=== PATIENT | female | born 1955 | race Caucasian/White ===

== ENCOUNTER 2021-01-30 13:29 | Emergency (ER) | payer MEDICARE, OTHER ==
[2021-01-30] MEDS ORDERED: IPRATROPIUM/ALBUTEROL 3 ML NEB INH STA (14:09)
--- NOTE | 2021-01-30 14:11 | ED Physician Documentation ---
History of Present Illness - Stated complaint Stated Complaint: SOA - Chief complaint Chief Complaint: Resp - History obtained from History obtained from: Patient - History of Present Illness Timing: How many weeks ago (1) Pain level max: 0 Pain level now: 0 - Additonal information Additional information: 65-year-old female presents to the emergency department stating that she has had 1 week of ongoing difficulty breathing. Has a history of COPD. Recently moved here from [place]. Uses home O2 at night. She states she has not been using this the past few nights. Uses her albuterol inhaler twice a day. Currently not on any steroids. No fevers. No chills. Has a dry nonproductive cough. Has had her Covid vaccinations. No chest pain. No leg swelling. Review of Systems Ten Systems: 10 systems reviewed and negative Constitutional: denies: Fever, Chills Throat: denies: Sore throat Cardiac: denies: Palpitations GI: denies: Abdominal Pain, Vomiting, Diarrhea Skin: denies: Rash Musculoskeletal: denies: Neck pain, Back pain Neurologic: denies: Headache PD PAST MEDICAL HISTORY - Past Medical History Cardiovascular: None Respiratory: COPD Endocrine/Autoimmune: Type 2 diabetes GI: None DOCTOR OF CHIROPRACTIC: None : Kidney stones HEENT: Chronic sinusitis Psych: Depression Musculoskeletal: Osteoarthritis Derm: None - Past Surgical History Past Surgical History: Yes General: Cholecystectomy, Appendectomy Ortho: Knee replacement, Carpal Tunnel surgery - Present Medications Home Medications: Ambulatory Orders Medication Instructions Recorded Confirmed DULoxetine [Cymbalta] 90 mg PO DAILY 07/02/13 01/30/21 Losartan [Cozaar] 25 mg PO DAILY 07/02/13 01/30/21 Albuterol Sulf [Ventolin Hfa 0 puffs INH PRN PRN 01/30/21 01/30/21 Inhaler] Benzonatate [Tessalon] 100 mg PO TID PRN 01/30/21 01/30/21 Bupropion HCl [Wellbutrin Xl] 300 mg PO DAILY 01/30/21 01/30/21 Dapagliflozin Propanediol [Farxiga] 10 mg PO DAILY 01/30/21 01/30/21 HYDROmorphone [Dilaudid] 2 mg PO Q6H PRN 01/30/21 01/30/21 Metformin HCl [Glucophage] 1,000 mg PO BID 01/30/21 01/30/21 Pregabalin [Lyrica] 2 cap PO DAILY PM 01/30/21 01/30/21 Pregabalin [Lyrica] 3 cap PO DAILY 01/30/21 01/30/21 Propranolol HCl 40 mg PO BID 01/30/21 01/30/21 Simvastatin [Zocor] 10 mg PO DAILY PM 01/30/21 01/30/21 predniSONE [Deltasone] 10 mg PO [id number] #42 tab 01/30/21 - Allergies Allergies/Adverse Reactions: Allergies Allergy/AdvReac Type Severity Reaction Status Date / Time acetaminophen [From Vicodin] Allergy Rash Verified 07/02/13 09:19 codeine Allergy Rash Verified 01/30/21 13:43 hydrocodone bitartrate * Allergy Rash Verified 01/30/21 13:43 [From Vicodin] morphine Allergy heavy Verified 01/30/21 13:43 sedation oxycodone HCl * Allergy Headache Verified 01/30/21 13:43 [From Percocet] - Social History Does the pt smoke?: No Smoking Status: Never smoker Does the pt drink ETOH?: No Does the pt have substance abuse?: No - Immunizations Immunizations are current?: Yes - POLST Patient has POLST: No PD ED PE NORMAL - Vitals Vital signs reviewed: Yes - General General: Alert and oriented X 3, No acute distress - HEENT HEENT: Moist mucous membranes - Neck Neck: Supple, no meningeal sign - Cardiac Cardiac: RRR - Respiratory Respiratory: No respiratory distress, Other (wheezing bilaterally.) - Abdomen Abdomen: Normal bowel sounds, Soft, Non tender - Derm Derm: Warm and dry - Extremities Extremities: No edema - Neuro Neuro: Alert and oriented X 3 Results - Vitals Vitals: Vital Signs - 24 hr 01/30/21 01/30/21 01/30/21 13:39 13:42 14:14 Temperature 36.6 C Heart Rate 110 H 100 Respiratory 24 19 Rate Blood Pressure 142/82 H O2 Saturation 93 88 L 01/30/21 01/30/21 01/30/21 14:16 15:00 15:38 Temperature 36.2 C L Heart Rate 94 96 Respiratory 13 18 Rate Blood Pressure 149/115 H O2 Saturation 93 94 Oxygen O2 Source Nasal cannula Oxygen Flow Rate 2 - EKG (time done) 1350 Rate: Rate (enter#) (101) Rhythm: Sinus tachycardia Gully: Normal Intervals: Normal UT QRS: Normal Ischemia: Normal ST segments - Labs Labs: Laboratory Tests 01/30/21 01/30/21 01/30/21 14:01 14:01 14:01 WBC 9.9 RBC 5.41 H Hgb 15.8 Hct 48.7 H MCV 90.0 MCH 29.2 MCHC 32.4 RDW 14.3 Plt Count 253 MPV 11.2 H Neut # (Auto) 4.8 Lymph # (Auto) 1.9 [place] # (Auto) 1.3 H Eos # (Auto) 1.9 H Baso # (Auto) 0.1 Absolute Nucleated RBC 0.00 Nucleated RBC % 0.0 Manual Slide Review Indicated RBC Morph Micro Appear 1+ ANISOCYTOSIS VBG pH VBG pCO2 VBG pO2 VBG HCO3 VBG Total CO2 VBG O2 Saturation VBG Base Excess Sodium 136 Potassium 4.0 Chloride 99 L Carbon Dioxide 25 Anion Gap 12.0 BUN 18 Creatinine 0.8 Estimated GFR (MDRD) 72 L Glucose 170 H Calcium 9.1 Total Bilirubin 0.4 AST 32 ALT 32 Alkaline Phosphatase 82 Troponin I High Sens < 2.3 L B-Natriuretic Peptide Total Protein 7.7 Albumin 4.0 Globulin 3.7 Albumin/Globulin Ratio 1.1 Lipase 35 01/30/21 01/30/21 14:01 14:01 WBC RBC Hgb Hct MCV MCH MCHC RDW Plt Count MPV Neut # (Auto) Lymph # (Auto) [place] # (Auto) Eos # (Auto) Baso # (Auto) Absolute Nucleated RBC Nucleated RBC % Manual Slide Review RBC Morph Micro Appear VBG pH 7.353 VBG pCO2 44.6 VBG pO2 54.4 H VBG HCO3 24.2 VBG Total CO2 25.6 VBG O2 Saturation 88.7 H VBG Base Excess -1.6 Sodium Potassium Chloride Carbon Dioxide Anion Gap BUN Creatinine Estimated GFR (MDRD) Glucose Calcium Total Bilirubin AST ALT Alkaline Phosphatase Troponin I High Sens B-Natriuretic Peptide 26 Total Protein Albumin Globulin Albumin/Globulin Ratio Lipase - Rads (name of study) cxr Radiology: Prelim report reviewed, EMP read contemporaneously, See rad report (No acute cardiopulmonary pathology.) PD MEDICAL DECISION MAKING - ED course Complexity details: reviewed results, re-evaluated patient, considered differential, d/w patient ED course: Patient is a 65-year-old female with what appears to be a COPD flare. She is well-appearing, nontoxic. Afebrile. Her O2 sat on room air is approximately 90%. This is baseline for her. Respiratory therapy did discuss with Elvis to set up her home O2 for nighttime. We will place her on a steroid taper for home and have her increase her albuterol from 2 times a day to 4 times a day. Recommend that she follow-up with the PCP for further care of her COPD. Patient counseled regarding signs and symptoms for which I believe and urgent re- evaluation would be necessary. Patient with good understanding of and agreement to plan and is comfortable going home at this time This document was made in part using voice recognition software. While efforts are made to proofread this document, sound alike and grammatical errors may occur. Departure - Departure Disposition: 01 Home, Self Care Clinical Impression: COPD exacerbation Condition: Good Instructions: ED COPD Flare Follow-Up: your,doctor in 1 week [Other] Prescriptions: predniSONE [Deltasone] 10 mg PO [id number] #42 tab Comments: You can use the albuterol up to 4 times per day. Follow-up with your doctor for further care. Return if you worsen.
--- NOTE | 2021-01-30 14:12 | XRAY Report ---
PROCEDURE: Chest 1 View X-Ray INDICATIONS: Chest Pain TECHNIQUE: One view of the chest was acquired. COMPARISON: None. FINDINGS: Surgical changes and devices: None. Lungs and pleura: No pleural effusions or pneumothorax. Lungs are clear. Mediastinum: Mediastinal contours appear normal. Heart size is normal. Bones and chest wall: No suspicious bony lesions. Overlying soft tissues appear unremarkable. IMPRESSION: No acute cardiopulmonary pathology. Reviewed by: Jac Lemus MD on 01/30/2021 2:10 PM PDT Approved by: Jac Lemus MD on 01/30/2021 2:10 PM PDT Station ID: [id number]
[2021-01-30 14:13] LABS: BASOPHILS # (AUTO) 0.1 10^3/uL (0.0-0.1); EOSINOPHILS # (AUTO) 1.9 10^3/uL (0.0-0.7); EOSINOPHILS % (AUTO) 18.7 %; HCT - HEMATOCRIT 48.7 % (37.0-47.0); HGB - HEMOGLOBIN 15.8 g/dL (12.0-16.0); LYMPHOCYTES # (AUTO) 1.9 10^3/uL (1.5-3.5); LYMPHOCYTES % (AUTO) 18.8 %; MEAN CORPUSCULAR HEMOGLOBIN 29.2 pg (27.0-31.0); MEAN CORPUSCULAR HGB CONC 32.4 g/dL (32.0-36.0); MEAN PLATELET VOLUME 11.2 fL (7.9-10.8); MONOCYTES # (AUTO) 1.3 10^3/uL (0.0-1.0); MONOCYTES % (AUTO) 12.7 %; NEUTROPHILS # (AUTO) 4.8 10^3/uL (1.5-6.6); NEUTROPHILS % (AUTO) 48.6 %; PLT - PLATELET COUNT 253 10^3/uL (130-450); RED BLOOD COUNT 5.41 10^6/uL (4.20-5.40); RED CELL DISTRIBUTION WIDTH 14.3 % (12.0-15.0); WHITE BLOOD COUNT 9.9 x10^3/uL (4.8-10.8)
[2021-01-30 14:15] LABS: RBC MORPHOLOGY (MULTIPLE) 1+ ANISOCYTOSIS (NORMAL); SLIDE REVIEW? Indicated
[2021-01-30 14:21] LABS: VBG BASE EXCESS -1.6 mmol/L (-2 - +2); VBG HCO3 24.2 mmol/L (23-28); VBG PCO2 44.6 mmHg (41-51); VBG PH 7.353 (7.31-7.41); VBG PO2 54.4 mmHg (25-47); VBG TOTAL CO2 25.6 mmol/L (24-29)
[2021-01-30 14:22] LABS: VBG OXYGEN SATURATION 88.7 % (60-80)
[2021-01-30 14:34] LABS: ALBUMIN/GLOBULIN RATIO 1.1 (1.0-2.2); BILIRUBIN,TOTAL 0.4 mg/dL (0.2-1.0); CALCIUM 9.1 mg/dL (8.5-10.3); CREATININE 0.8 mg/dL (0.4-1.0); TOTAL PROTEIN 7.7 g/dL (6.7-8.2)
[2021-01-30] MEDS ORDERED: predniSONE 20 MG TABLET PO STA (14:52)
[2021-01-30] MEDS ORDERED: ALBUTEROL NEB 2.5 MG/3 ML INH STA (15:12)
[2021-01-30 16:23] VITALS: BP 141/102
== END 2021-01-30 16:15 | disposition home or self-care (01) ==
LOC: ED 13:29
DX: J44.1 Chronic obstructive pulmonary disease with (acute) exacerbation (principal); Z99.81 Dependence on supplemental oxygen; E11.9 Type 2 diabetes mellitus without complications; Z79.84 Long term (current) use of oral hypoglycemic drugs
CPT/HCPCS: 36415; 71045; 80053; 82803; 83690; 83880; 84484; 85025; 93005; 94640; 94664; 99284; J7512

== ENCOUNTER 2021-02-13 10:35 | Outpatient (CLI) | payer MEDICARE, OTHER ==
--- NOTE | 2021-02-13 15:17 | XRAY Report ---
PROCEDURE: Knee 3 View RT INDICATIONS: RIGHT KNEE PAIN TECHNIQUE: 4 views of the right knee(s) were acquired. COMPARISON: None. FINDINGS: Bones: No fractures or dislocations, but there is evidence of prior ACL reconstruction, and also pos ttraumatic degenerative knee joint osteoarthritis.. No suspicious bony lesions. There is moderate me dial and lateral compartment joint space narrowing on the frontal projection, and at the patellofemor al joint there is also mild to moderate degenerative osteoarthritis involving each facet. Soft tissues: No joint effusion. No suspicious soft tissue calcifications. At the medial border of the knee joint anteriorly there are 2 adjacent small calcific radiodensities that are rounded, and c ould represent posttraumatic intra-articular osteochondral loose bodies. IMPRESSION: Prior ACL reconstruction, no joint effusion found. 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 Anterior medial 2 small rounded 3 x 4 mm possible intra-articul ar loose bodies. Reviewed by: Elder Geronimo MD on 02/13/2021 3:16 PM PDT Approved by: Elder Geronimo MD on 02/13/2021 3:16 PM PDT Station ID: [id number]
== END 2021-02-13 10:36 | disposition home or self-care (01) ==
LOC: DI.N 10:35
PROVIDERS: ATTEND Physician Assistant
DX: M17.31 Unilateral post-traumatic osteoarthritis, right knee (principal); R93.6 Abnormal findings on diagnostic imaging of limbs

== ENCOUNTER 2021-02-15 09:30 | Emergency (ER) | payer MEDICARE, OTHER ==
[2021-02-15] MEDS ORDERED: MECLIZINE 12.5 MG TABLET PO STA (10:39)
[2021-02-15] MEDS ORDERED: ACETAMINOPHEN 500 MG TABLET PO STA (10:39)
[2021-02-15] MEDS ORDERED: ALBUTEROL NEB 2.5 MG/3 ML INH STA (10:41)
--- NOTE | 2021-02-15 10:41 | ED Physician Documentation ---
PD HPI HEADACHE - Stated complaint Stated Complaint: GLF/HEAD PX - Chief complaint Chief Complaint: Trauma Hd/Nk - History obtained from History obtained from: Patient - Additional information Additional information: 3 days ago fell tripped up on the stairs hit her back of her head on the linoleum. Also hurt her left shoulder and hip. There was no loss of consciousness but then since then she has had intermittent nausea and 1 and waning headaches at times severe. She has also had vertigo. Of note she has a history of COPD and is noted to be hypoxic but is not much more short of breath than usual. Review of Systems Ten Systems: 10 systems reviewed and negative Constitutional: reports: Fatigue. denies: Fever, Chills GI: reports: Nausea, Vomiting PD PAST MEDICAL HISTORY - Past Medical History Past Medical History: Yes Cardiovascular: None Respiratory: COPD Endocrine/Autoimmune: Type 2 diabetes GI: None MANAGER SPORTS: None : Kidney stones HEENT: Chronic sinusitis Psych: Depression Musculoskeletal: Osteoarthritis Derm: None - Past Surgical History Past Surgical History: Yes General: Cholecystectomy, Appendectomy Ortho: Knee replacement, Carpal Tunnel surgery - Present Medications Home Medications: Ambulatory Orders Medication Instructions Recorded Confirmed DULoxetine [Cymbalta] 90 mg PO DAILY 07/02/13 02/15/21 Losartan [Cozaar] 25 mg PO DAILY 07/02/13 02/15/21 Albuterol Sulf [Ventolin Hfa 0 puffs INH PRN PRN 01/30/21 02/15/21 Inhaler] Bupropion HCl [Wellbutrin Xl] 300 mg PO DAILY 01/30/21 02/15/21 Dapagliflozin Propanediol [Farxiga] 10 mg PO DAILY 01/30/21 02/15/21 Metformin HCl [Glucophage] 1,000 mg PO BID 01/30/21 02/15/21 Pregabalin [Lyrica] 3 cap PO DAILY 01/30/21 02/15/21 Propranolol HCl 40 mg PO BID 01/30/21 02/15/21 Simvastatin [Zocor] 10 mg PO DAILY PM 01/30/21 02/15/21 Dulaglutide [Trulicity] 1 applic SQ OAW 02/15/21 02/15/21 Fluticasone/Vilanterol [Breo 1 inh INH DAILY 02/15/21 02/15/21 Ellipta 100-25 Mcg INH] Meclizine HCl [Motion Sickness] 25 mg PO Q6H PRN #20 tablet 02/15/21 - Allergies Allergies/Adverse Reactions: Allergies Allergy/AdvReac Type Severity Reaction Status Date / Time acetaminophen [From Vicodin] Allergy Rash Verified 02/15/21 09:47 codeine Allergy Rash Verified 02/15/21 09:47 hydrocodone bitartrate * Allergy Rash Verified 02/15/21 09:47 [From Vicodin] morphine Allergy heavy Verified 02/15/21 09:47 sedation oxycodone HCl * Allergy Headache Verified 02/15/21 09:47 [From Percocet] - Social History Does the pt smoke?: No Smoking Status: Never smoker Does the pt drink ETOH?: No Does the pt have substance abuse?: No - Immunizations Immunizations are current?: Yes - POLST Patient has POLST: No PD ED PE NORMAL - Vitals Vital signs reviewed: Yes - General General: Alert and oriented X 3, No acute distress - HEENT HEENT: PERRL, EOMI - Neck Neck: Supple, no meningeal sign, No bony TTP - Cardiac Cardiac: RRR, No murmur - Respiratory Respiratory: No respiratory distress, Other (Wheezy throughout but nonlabored) - Abdomen Abdomen: Soft, Non tender - Back Back: No CVA TTP, No spinal TTP - Derm Derm: Normal color, Warm and dry - Extremities Extremities: Other (Examination of the left shoulder and left hip demonstrates full range of motion and nontender.) - Neuro Neuro: Alert and oriented X 3, No motor deficit, No sensory deficit, Normal speech Eye Opening: Spontaneous Motor: Obeys Commands Verbal: Oriented GCS Score: 15 Results - Vitals Vitals: Vital Signs - 24 hr 02/15/21 02/15/21 02/15/21 09:39 10:26 11:14 Temperature 36.8 C Heart Rate 80 75 72 Respiratory 20 16 20 Rate Blood Pressure 118/87 H 121/73 O2 Saturation 88 L 94 Oxygen O2 Source Nasal cannula PD MEDICAL DECISION MAKING - ED course ED course: 65-year-old woman presents with postconcussion headaches and vertigo after head injury. CT scanning of the head and cervical spine interpreted contemporaneously by me showed no acute issue. She does have some sinus disease but is asymptomatic from that perspective. She was noted to be hypoxic here, but after an albuterol nebulizer was in the mid to high 90s on room air. She has inhalers at home. She did get relief with symptomatic medications here including acetaminophen and meclizine albeit incompletely relief. Departure - Departure Disposition: 01 Home, Self Care Clinical Impression: Vertigo Concussion Qualifiers: Encounter type: initial encounter Loss of consciousness presence/duration: without LOC Qualified Code(s): S06.0X0A - Concussion without loss of consciousness, initial encounter Injury of head and neck Qualifiers: Encounter type: initial encounter Qualified Code(s): S09.90XA - Unspecified injury of head, initial encounter; S19.9XXA - Unspecified injury of neck, initial encounter Condition: Good Record reviewed to determine appropriate education?: Yes Instructions: ED Concussion Prescriptions: Meclizine HCl [Motion Sickness] 25 mg PO Q6H PRN #20 tablet PRN Reason: Dizziness Comments: The vertigo and headaches should go away with time. No specific intervention is needed. There is no blood in your brain. I am prescribing some medications to help with the vertigo and you can also take Tylenol as needed for the headaches. Recommend not drinking or driving with the vertigo medication. Follow-up with your doctor this week for reevaluation. Return for new or worsening symptoms.
--- NOTE | 2021-02-15 11:16 | CT Report ---
PROCEDURE: HEAD WO INDICATIONS: head injury TECHNIQUE: Noncontrast 4.5 mm thick angled axial sections acquired from the foramen magnum to the vertex. For r adiation dose reduction, the following was used: automated exposure control, adjustment of mA and/or kV according to patient size. COMPARISON: None. FINDINGS: Image quality: Excellent. CSF spaces: Basal cisterns are patent. No extra-axial fluid collections. Ventricles are normal in size and shape. Brain: No midline shift. No intracranial masses or hemorrhage. Falk-white matter interface is norm al. Skull and face: Calvarium and visualized facial bones are intact, without suspicious lesions. Sinuses: Mild mucosal thickening within the bilateral frontal, ethmoid, and maxillary sinuses. Modera te left sphenoid sinus mucosal thickening. Mild right sphenoid sinus mucosal thickening. Mastoids are clear. IMPRESSION: 1. No acute intracranial abnormality. 2. Sinus disease. Reviewed by: Ani Carlson MD on 02/15/2021 10:15 AM AMAYA Approved by: Ani Carlson MD on 02/15/2021 10:15 AM AMAYA Station ID: [id number]
--- NOTE | 2021-02-15 11:17 | CT Report ---
PROCEDURE: CERVICAL SPINE WO INDICATIONS: head injury TECHNIQUE: Noncontrast 3 mm thick sections acquired from the skull base to the T4 level. Sagittal and coronal r eformats were then constructed. For radiation dose reduction, the following was used: automated exp osure control, adjustment of mA and/or kV according to patient size. COMPARISON: None. FINDINGS: Image quality: Excellent. Bones: No fractures or dislocations. Visualized superior ribs are intact. Soft tissues: Prevertebral soft tissues are normal in thickness. No paravertebral hematomas. No ap ical pneumothoraces. Mucosal thickening within the bilateral maxillary sinuses. Mastoids are clear. IMPRESSION: No fracture. Reviewed by: Ani Carlson MD on 02/15/2021 10:16 AM AMAYA Approved by: Ani Carlson MD on 02/15/2021 10:16 AM AMAYA Station ID: [id number]
[2021-02-15 11:40] VITALS: BP 106/65
== END 2021-02-15 11:54 | disposition home or self-care (01) ==
LOC: ED 09:30
DX: S06.0X0A Concussion without loss of consciousness, initial encounter (principal); W10.9XXA Fall (on) (from) unspecified stairs and steps, initial encounter; E11.9 Type 2 diabetes mellitus without complications; Z79.84 Long term (current) use of oral hypoglycemic drugs; J44.9 Chronic obstructive pulmonary disease, unspecified; R09.02 Hypoxemia
CPT/HCPCS: 70450; 72125; 94640; 99284; A9270

== ENCOUNTER 2021-09-29 08:00 | Outpatient (CLI) | payer MEDICARE, OTHER | END 2021-09-29 23:59 | disposition home or self-care (01) | LOC: LAB.S 08:00 | PROVIDERS: ATTEND Physician Assistant | DX: R05.1 Acute cough (principal); R30.0 Dysuria; Z20.822 Contact with and (suspected) exposure to COVID-19 | CPT/HCPCS: 87086; U0004 ==

== ENCOUNTER 2021-09-29 11:36 | Emergency (ER) | payer MEDICARE, OTHER ==
[2021-09-29 12:42] LABS: EOSINOPHILS % (AUTO) 11.7 %; HGB - HEMOGLOBIN 14.7 g/dL (12.0-16.0); MEAN CORPUSCULAR VOLUME 90.7 fL (81.0-99.0); MEAN PLATELET VOLUME 10.7 fL (7.9-10.8); MONOCYTES % (AUTO) 8.6 %; NEUTROPHILS % (AUTO) 58.5 %; PLT - PLATELET COUNT 264 10^3/uL (130-450); RED BLOOD COUNT 5.07 10^6/uL (4.20-5.40); WHITE BLOOD COUNT 10.2 x10^3/uL (4.8-10.8)
[2021-09-29 12:52] LABS: CALCIUM 9.1 mg/dL (8.5-10.3); CREATININE 0.8 mg/dL (0.4-1.0); POTASSIUM 4.1 mmol/L (3.5-5.0)
--- OUTSIDE RECORDS SUMMARY | 2021-09-29 12:53 | EXTERNAL MEDICAL SUMMARY RPT | Continuity of Care Document ---
:1955 Author Organization [facility] Address [address] [place] [address] Phone Care Team Providers Name Role Phone Marybeth HANDY Unavailable Unavailable Jose Armando HANDY Unavailable Unavailable Allergies No information. Encounters No information. Medications date description facility [id number] metformin [facility] [place] [id number] propranolol [facility] [id number] albuterol sulfate [facility] [id number] duloxetine [facility] [id number] pregabalin [facility] [id number] fluticasone furoate-vilanterol [facility] [id number] metformin [facility] [place] [id number] propranolol [facility] [place] [id number] albuterol sulfate [facility] [place] [id number] duloxetine [facility] 20210819 pregabalin [facility] [id number] fluticasone furoate-vilanterol [facility] [place] Problems date description facility [id number] Urine C&S [facility] [place] [id number] Unspecified abdominal pain [facility] [place] 20210929 Total score? [facility] [place] 20210929 Tobacco use and exposure [facility] [place] 20210929 Tobacco smoking status NHIS [facility] [place] 20210929 Right flank pain [facility] [place] 20210929 Obstructive chronic bronchitis with [facility]k-In Clinic [facility] & (acute) exacerbation [facility] [place] 20210929 Never smoker [facility] [place] 20210929 Exercise [facility] [place] 20210929 Dysuria Walk[facility]In [facility] [place] 20210929 Details of drug misuse behavior Walk-I n [facility] [place] 20210929 Cough [facility] [place] 20210929 Chronic obstructive pulmonary disease [facility] Primary Care & with (acute) exacerbation Ancillary Serv ices [place] 20210929 COVID19 Testing [facility] [place] 20210929 Alcohol use [facility] [place] 20210929 Acute exacerbation of chronic [facility] Care & obstructive airways disease Ancillary Se rvices [place] 20210929 Acute cough [facility] [place] 20210929 Abdominal pain, other specified site; [facility] & multiple sites [facility] [place] 20210819 Ulcer of foot Walk[facility] [place] 20210819 Tobacco use and exposure Walk-In 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-In [facility] Primary Care & part of left foot with unspecified Ancil ken Services [place] severity [id number] Alcohol use [facility] [place] 20210819 Ulcer of other part of foot Walk[facility]In [facility] [place] 20210819 Never smoker [facility] [place] 20210819 Exercise [facility] [place] 20210819 Details of drug misuse behavior [facility] [place] Procedures date description facility 20210929 POC URINALYSIS DIP [facility] [place] Results test status date ordered by attending specimen unique e Urobilinogen_Presence_ unknown 20210929 unknown unknown unknown in_Urine_by_Test_strip Specific_gravity_of_Ur unknown [id number] unknown unknown unknown ine_by_Test_strip pH_of_Urine_by_Test_st unknown 64862092 unknown unknown unknown rip Nitrite_Presence_in_Ur unknown 80259869 unknown unknown unknown ine_by_Test_strip Leukocyte_esterase_Pre unknown 06757206 unknown unknown unknown sence_in_Urine_by_Test_ strip Ketones_Mass_volume_in unknown 10358195 unknown unknown unknown _Urine_by_Test_strip Glucose_Mass_volume_in unknown 92253489 unknown unknown unknown _Urine_by_Test_strip Color_of_Urine unknown 50612389 unknown unknown unknown Bilirubin.total_Presen unknown 07271063 unknown unknown unknown ce_in_Urine_by_Test_str ip Appearance_of_Urine unknown 23452054 unknown unknown unk nown urinalysis_routine unknown 13634072 unknown unknown unkn own appearance_urine unknown 76331258 unknown unknown unknow n leukocyte_esterase_uri unknown 15869615 unknown unknown unknown ne_by_dipstick urobilinogen_urine_sem unknown 42586334 unknown unknown unknown iquantitative_dipstick_ specific_gravity_urine unknown 30664001 unknown unknown unknown pH_urine_semiquantitat unknown 45477776 unknown unknown unknown gita nitrite_urine_semiquan unknown 90337099 unknown unknown unknown titative ketones_urine_by_test_ unknown 11398491 unknown unknown unknown strip bilirubin_urine unknown 87182795 unknown unknown unknown urine_color unknown 75151787 unknown unknown unknown Albumin_Presence_in_Ur unknown 87155028 unknown unknown unknown ine RBC_urine_dipstick unknown 16376318 unknown unknown unkn own Erythrocytes_area_in_U unknown 87152779 unknown unknown unknown rine_sediment_by_Micros copy_high_power_field glucose_urine_semiquan unknown 68599471 unknown unknown unknown titative protein_urine_semiquan unknown 27738776 unknown unknown unknown titative_dipstick_ DIPSTICK_URINE_STRIP_L unknown 08489592 unknown unknown unknown OT_NUMBER facility observation status value reference units lab abnor mal line range code notes Walk-In Urobilinogen unknown 0.2 unknown _5818 unknow n unknown Clinic _Presence_in_ -0 Primary Urine_by_Test Care & _strip [facility] Specific_gra unknown 1.030 unknown _5811 unknow n unknown Clinic vity_of_Urine -5 Primary _by_Test_stri Care & p [facility] pH_of_Urine_ unknown 5 unknown _5803 unknow n unknown Clinic by_Test_strip -2 Primary [facility] Nitrite_Pres unknown positive unknown _5802 unkn own unknown Clinic ence_in_Urine -4 Primary _by_Test_stri Care & p [facility] Leukocyte_es unknown trace unknown _5799 unknow n unknown Clinic terase_Presen -2 Primary ce_in_Urine_b Care & y_Test_strip [facility] Ketones_Mass unknown trace (5) unknown _5797 unk nown unknown Clinic _volume_in_Ur -6 Primary ine_by_Test_s Care & trip [facility] Glucose_Mass unknown 1+ unknown _5792 unknow n unknown Clinic _volume_in_Ur -7 Primary ine_by_Test_s Care & trip [facility] Color_of_Uri unknown jose unknown _5778 unknow n unknown Clinic ne -6 [facility] Bilirubin.to unknown 2+ unknown _5770 unknow n unknown Clinic tal_Presence_ -3 Primary in_Urine_by_T Care & est_strip [facility] Appearance_o unknown clear unknown _5767 unknow n unknown Clinic f_Urine -9 [facility] urinalysis_r unknown Clean unknown _47 unknow n unknown Clinic outine Catch [facility] appearance_u unknown clear unknown _328 unknow n unknown Clinic rine [facility] leukocyte_es unknown trace unknown _327 unknow n unknown Clinic terase_urine_ Primary by_dipstick [facility] urobilinogen unknown 0.2 unknown _326 unknow n unknown Clinic _urine_semiqu Primary antitative_di Care & pstick_ [facility] specific_gra unknown 1.030 unknown _325 unknow n unknown Clinic vity_urine [facility] pH_urine_sem unknown 5 unknown _324 unknow n unknown Clinic iquantitative [facility] nitrite_urin unknown positive unknown _323 unkn own unknown Clinic e_semiquantit Primary ative [facility] [place] [facility] ketones_urin unknown trace (5) unknown _322 unk nown unknown Clinic e_by_test_str Primary ip [facility] bilirubin_ur unknown 2+ unknown _319 unknow n unknown Clinic ine [facility] urine_color unknown jose unknown _2751 unknown unknown Clinic [facility] Albumin_Pres unknown trace unknown _1753 unknow n unknown Clinic ence_in_Urine -3 [facility] RBC_urine_di unknown negative unknown _1700 unkn own unknown Clinic pstick 005 [facility] Erythrocytes unknown negative unknown _1394 unkn own unknown Clinic _area_in_Urin 5-1 Primary e_sediment_by Care & _Microscopy_h Ancillary igh_power_fie Services ld [facility] glucose_urin unknown 1+ unknown _123 unknow n unknown Clinic e_semiquantit Primary ative Care & [facility] protein_urin unknown trace unknown _118 unknow n unknown Clinic e_semiquantit Primary ative_dipstic Care & k_ Ancillary Services [facility] DIPSTICK_URI unknown 106598 unknown _1014 unknow n unknown Clinic NE_STRIP_LOT_ 00 Primary NUMBER [facility] Vital Signs date measurement value source [id number] weight_standard 237 lb 20210819 weight_metric 107.5 kg 20210819 temperature_standard 97.3 F 20210819 temperature_metric 36.28 C 20210819 respiration_rate 14 /min 20210819 height_standard 64 in 20210819 height_metric 162.56 cm 20210819 heart_rate 70 /min 20210819 BP_systolic 91 mm[Hg] 20210819 BP_diastolic 63 mm[Hg] 20210819 BMI 40.83 kg/m2 20210929 weight_standard 235 lb 20210929 weight_metric 106.59 kg 20210929 temperature_standard 97.7 F 20210929 temperature_metric 36.5 C 20210929 respiration_rate 18 /min 20210929 height_standard 64 in 20210929 height_metric 162.56 cm 20210929 heart_rate 79 /min 20210929 BP_systolic 101 mm[Hg] 20210929 BP_diastolic 71 mm[Hg] 20210929 BMI 40.48 kg/m2
[2021-09-29] MEDS ORDERED: IPRATROPIUM/ALBUTEROL 3 ML NEB INH STA (12:54)
[2021-09-29] MEDS ORDERED: NAPROXEN 250 MG TABLET PO STA (12:54)
[2021-09-29] MEDS ORDERED: predniSONE 20 MG TABLET PO STA (12:54)
--- NOTE | 2021-09-29 12:56 | ED Physician Documentation ---
PD HPI URI - Stated complaint Stated Complaint: R FLANK PX - Chief complaint Chief Complaint: Resp - History obtained from History obtained from: Patient - Additional information Additional information: This is a hugh 66-year-old woman with history of type 2 diabetes, kidney stones and COPD who presents with increased shortness of breath and productive cough for several days as well as right flank pain that is progressive and constant for the last several days. Feels like prior kidney stones. Seen at the walk-in clinic and sent here for further evaluation and treatment. Denies pedal edema or calf pain. Pain is reminiscent of prior renal colic. No fevers. In contrast to the nurses notes, she thinks she has hematuria but no other urinary complaints. 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 cysts : Kidney stones HEENT: Chronic sinusitis Psych: Depression Musculoskeletal: Osteoarthritis, Gout Derm: None - Past Surgical History Past Surgical History: Yes General: Cholecystectomy, Appendectomy Ortho: Knee replacement, Carpal Tunnel surgery - Present Medications Home Medications: Ambulatory Orders Medication Instructions Recorded Confirmed DULoxetine [Cymbalta] 90 mg PO DAILY 07/02/13 02/15/21 Losartan [Cozaar] 25 mg PO DAILY 07/02/13 02/15/21 Albuterol Sulf [Ventolin Hfa 0 puffs INH PRN PRN 01/30/21 02/15/21 Inhaler] Bupropion HCl [Wellbutrin Xl] 300 mg PO DAILY 01/30/21 02/15/21 Dapagliflozin Propanediol [Farxiga] 10 mg PO DAILY 01/30/21 02/15/21 Metformin HCl [Glucophage] 1,000 mg PO BID 01/30/21 02/15/21 Pregabalin [Lyrica] 3 cap PO DAILY 01/30/21 02/15/21 Propranolol HCl 40 mg PO BID 01/30/21 02/15/21 Simvastatin [Zocor] 10 mg PO DAILY PM 01/30/21 02/15/21 Dulaglutide [Trulicity] 1 applic SQ OAW 08/01/21 08/01/21 Fluticasone/Vilanterol [Breo 1 inh INH DAILY 02/15/21 02/15/21 Ellipta 100-25 Mcg INH] Meclizine HCl [Motion Sickness] 25 mg PO Q6H PRN #20 tablet 02/15/21 Benzonatate [Tessalon] 200 mg PO QID PRN #20 cap 09/29/21 Doxycycline Hyclate 100 mg PO BID #14 tab.sr 09/29/21 predniSONE [Deltasone] 20 mg PO [id number] #21 tab 09/29/21 - Allergies Allergies/Adverse Reactions: Allergies Allergy/AdvReac Type Severity Reaction Status Date / Time acetaminophen [From Vicodin] Allergy Rash Verified 09/29/21 12:05 codeine Allergy Rash Verified 09/29/21 12:05 hydrocodone bitartrate * Allergy Rash Verified 09/29/21 12:05 [From Vicodin] morphine Allergy heavy Verified 09/29/21 12:05 sedation oxycodone HCl * Allergy Headache Verified 09/29/21 12:05 [From Percocet] - Social History Does the pt smoke?: No Smoking Status: Never smoker Does the pt drink ETOH?: No Does the pt have substance abuse?: No - Immunizations Immunizations are current?: Yes - POLST Patient has POLST: No PD ED PE NORMAL - Vitals Vital signs reviewed: Yes - General General: Alert and oriented X 3, No acute distress - HEENT HEENT: PERRL, EOMI - Neck Neck: Supple, no meningeal sign, No bony TTP - Cardiac Cardiac: RRR, No murmur - Respiratory Respiratory: Other (Rhonchorous and wheezy throughout with frequent coughing, does not appear to have labored breathing at rest though.) - Abdomen Abdomen: Normal bowel sounds, Soft, Non tender - Back Back: Other (Quite tender to the right flank without skin changes) - Derm Derm: Normal color, Warm and dry - Extremities Extremities: No edema, No calf tenderness / cord - Neuro Neuro: Alert and oriented X 3, Normal speech Results - Vitals Vitals: Vital Signs - 24 hr 09/29/21 09/29/21 09/29/21 11:59 12:28 13:05 Temperature 36.1 C L Heart Rate 73 76 72 Respiratory 10 L 24 18 Rate Blood Pressure 119/77 118/66 O2 Saturation 93 92 09/29/21 09/29/21 14:07 14:51 Temperature 36.1 C L Heart Rate 74 71 Respiratory 14 20 Rate Blood Pressure 113/55 L O2 Saturation 97 97 Oxygen O2 Source Room air - EKG (time done) 1209 Rate: Rate (enter#) (77) Rhythm: NSR [place]: Normal Intervals: Normal [place] QRS: Normal Ischemia: Normal ST segments - Labs Labs: Laboratory Tests 09/29/21 09/29/21 09/29/21 12:37 12:37 14:34 WBC 10.2 RBC 5.07 Hgb 14.7 Hct 46.0 MCV 90.7 MCH 29.0 MCHC 32.0 RDW 14.0 Plt Count 264 MPV 10.7 Neut # (Auto) Not Reportable Lymph # (Auto) Not Reportable Major # (Auto) Not Reportable Eos # (Auto) Not Reportable Baso # (Auto) Not Reportable Absolute Nucleated RBC Not Reportable Total Counted 100 Band Neuts % (Manual) 0 Abnorm Lymph % (Manual) 0 Nucleated RBC % Not Reportable Neutrophils # (Manual) 6.8 H Lymphocytes # (Manual) 1.9 Monocytes # (Manual) 0.5 Eosinophils # (Manual) 0.8 H Basophils # (Manual) 0.1 Differential Comment MANUAL DIFFERENTIAL Manual Slide Review Indicated WBC Morphology NORMAL APPEARANCE Platelet Estimate NORMAL (130-450,000) Platelet Morphology NORMAL APPEARANCE RBC Morph Micro Appear NORMAL APPEARANCE Sodium 134 L Potassium 4.1 Chloride 96 L Carbon Dioxide 26 Anion Gap 12.0 BUN 17 Creatinine 0.8 Estimated GFR (MDRD) 72 L Glucose 145 H Calcium 9.1 Urine Color YELLOW Urine Clarity CLEAR Urine pH 6.5 Ur Specific [place] <=1.005 Urine Protein NEGATIVE Urine Glucose (UA) >=1000 H Urine Ketones NEGATIVE Urine Occult Blood NEGATIVE Urine Nitrite NEGATIVE Urine Bilirubin NEGATIVE Urine Urobilinogen 0.2 (NORMAL) Ur Leukocyte Esterase NEGATIVE Ur Microscopic Review NOT INDICATED Urine Culture Comments NOT INDICATED PD MEDICAL DECISION MAKING - ED course ED course: 66-year-old woman with history of fibromyalgia and COPD who presents with an apparent COPD flare but also shortness of breath and flank pain. Differential diagnosis is broad and includes vascular issues, recurrent renal colic which she has had in the past etc. As such CT angiography of the chest and abdomen was done without evidence of pulmonary embolism, renal colic or other vascular issue. Pain was difficult to control because of her allergies but at this point it seems like her symptoms are probably just due to coughing from a COPD flare. Departure - Departure Disposition: 01 Home, Self Care Clinical Impression: COPD exacerbation, Flank pain Condition: Good Record reviewed to determine appropriate education?: Yes Instructions: ED COPD Flare Prescriptions: predniSONE [Deltasone] 20 mg PO [id number] #21 tab Doxycycline Hyclate 100 mg PO BID #14 tab.sr Benzonatate [Tessalon] 200 mg PO QID PRN #20 cap PRN Reason: Cough Comments: As discussed, thankfully there is no evidence of kidney stone or kidney infection or pneumonia or blood clot in the lungs. Return for new or worsening symptoms. Follow-up with your primary care physician, next billable appointment. I sent your prescriptions electronically to [facility] in [place].
[2021-09-29 12:57] LABS: SLIDE REVIEW? Indicated
[2021-09-29 12:58] LABS: ABNORMAL LYMPHS % (MANUAL) 0 %; BAND NEUTROPHILS % (MANUAL) 0 %
[2021-09-29 13:01] LABS: BASOPHILS # (MANUAL) 0.1 10^3/uL (0-0.1); BASOPHILS % (MANUAL) 1 %; EOSINOPHILS # (MANUAL) 0.8 10^3/uL (0-0.7); LYMPHOCYTES # (MANUAL) 1.9 10^3/uL (1.5-3.5); LYMPHOCYTES % (MANUAL) 19 %; MONOCYTES # (MANUAL) 0.5 10^3/uL (0.0-1.0); NEUTROPHILS # (MANUAL) 6.8 10^3/uL (1.5-6.6)
[2021-09-29 13:02] LABS: DIFFERENTIAL COMMENT MANUAL DIFFERENTIAL; PLATELET ESTIMATE, MANUAL NORMAL (130-450,000) (NORMAL); PLATELET MORPHOLOGY NORMAL APPEARANCE (NORMAL); RBC MORPHOLOGY (MULTIPLE) NORMAL APPEARANCE (NORMAL); WBC MORPHOLOGY (MULTIPLE) NORMAL APPEARANCE (NORMAL)
[2021-09-29] MEDS ORDERED: IOVERSOL 320 100 ML VIAL IVP ONE ×2 (13:46→15:09)
[2021-09-29 14:53] LABS: BILIRUBIN,URINE NEGATIVE (NEGATIVE); GLUCOSE, URINE (UA) >=1000 mg/dL (NEGATIVE); KETONES,URINE (UA) NEGATIVE (NEGATIVE); LEUKOCYTE ESTERASE, URINE NEGATIVE (NEGATIVE); NITRITE,URINE NEGATIVE (NEGATIVE); OCCULT BLOOD,URINE NEGATIVE (NEGATIVE); PH,URINE 6.5 PH (5.0-7.5); PROTEIN,URINE NEGATIVE (NEGATIVE); UROBILINOGEN,URINE 0.2 (NORMAL) E.U./dL (NORMAL)
[2021-09-29] MEDS ORDERED: ACETAMINOPHEN 500 MG TABLET PO STA (14:53)
[2021-09-29 15:03] LABS: CLARITY,URINE CLEAR (CLEAR)
--- NOTE | 2021-09-29 15:15 | CT Report ---
PROCEDURE: ANGIO CHEST W/WO INDICATIONS: Dyspnea, back pain, PE protocol CONTRAST: IV CONTRAST: Optiray 320 ml: 100 PO CONTRAST: *NO PO CONTRAST TECHNIQUE: After the administration of intravenous contrast, 2 mm axial images were acquired from the pulmonary apices to the posterior costophrenic angles during the arterial phase. In addition, 1 mm lung kernel and 5 mm soft tissue kernel reconstructions were performed. 3-dimensional coronal oblique maximum int ensity projection (MIP) reformats, 8 mm axial MIP, and 5 mm coronal and sagittal MPR reformats were t hen performed through the thorax. For radiation dose reduction, the following was used: automated exp osure control, adjustment of mA and/or kV according to patient size. COMPARISON: Chest x-ray 01/30/2021 FINDINGS: Image quality: Distal branches are suboptimally opacified. Pulmonary arteries: Pulmonary arteries are normal in size, and demonstrate no intraluminal filling d efects to suggest central pulmonary embolism. Segmental branches are poorly visualized secondary to areas of artifact and poor contrast opacification. The appearance heterogeneous in appearance. Lungs and pleura: Lungs are clear. No pleural effusions or pneumothorax. Central and peripheral ai rways are patent. Mediastinum: Heart size is normal, without pericardial effusion. No mediastinal or hilar adenopathy . Thoracic aorta is normal in caliber and enhancement. Esophagus is normal in caliber, without hiat al hernia. Bones and chest wall: No suspicious bony lesions. Ribs and thoracic spine appear intact throughout. No axillary or supraclavicular adenopathy. The thyroid is normal in size and there are no incident al findings. Bilateral chest wall implants are noted with partial collapse bilaterally. Abdomen: Visualized upper abdominal solid organs appear normal in the early arterial phase of enhanc ement. IMPRESSION: No central pulmonary embolism. There is poor visualization of segmental branches secondary to artifac t and limited opacification cranium and overall heterogeneous appearance. Emboli within these regions cannot be excluded. CLINICAL RECOMMENDATION STATEMENTS: In patients <35 years with an ITN detected on CT, MRI, or extrathyroidal ultrasound, the Committee re commends further evaluation with dedicated thyroid ultrasound if the nodule is "e1 cm and has no susp icious imaging features, and if the patient has normal life expectancy. In patients "e35 years with an ITN detected on CT, MRI, or extrathyroidal ultrasound, the Committee r ecommends further evaluation with dedicated thyroid ultrasound if the nodule is "e1.5 cm and has no s uspicious imaging features, and if the patient has normal life expectancy. (ACR, 2014) Reviewed by: Neida Londono MD on 09/29/2021 3:13 PM PDT Approved by: Neida Londono MD on 09/29/2021 3:13 PM PDT Station ID: [id number]
--- NOTE | 2021-09-29 15:18 | CT Report ---
PROCEDURE: ANGIO ABDOMEN/PELVIS W INDICATIONS: Dyspnea, back pain CONTRAST: IV CONTRAST: Optiray 320 ml: 100 PO CONTRAST: *NO PO CONTRAST TECHNIQUE: After the administration of intravenous contrast, 2.5 mm thick sections acquired from the diaphragm t o the symphysis. 10 mm maximum-intensity projection (MIP) reformats were then acquired. For radiati on dose reduction, the following was used: automated exposure control. COMPARISON: CT abdomen pelvis 07/02/2013 FINDINGS: Image quality: Excellent. Aorta: Aorta is well-opacified without evidence of hemodynamically significant stenosis, vascular oc clusion or aneurysmal dilation. No dissection. Mesenteric arteries: Celiac trunk, superior and inferior mesenteric arteries appear patent. Right pelvic arteries: Widely patent. Left pelvic arteries: Widely patent. Extravascular soft tissues: Lung bases are clear. Heart size is normal. Liver and spleen are emmett l in size and enhancement. Gallbladder is contracted without grossly visualized stone.. Biliary sys tem is non dilated. Pancreas enhances normally. No adrenal nodules. Kidneys are normal in size and enhancement, without hydronephrosis. Non opacified bowel loops are normal in wall thickness and cristi iber. No free fluid or air. No retroperitoneal or mesenteric adenopathy. No ventral hernias. No s uspicious bony lesions. No vertebral body compression fractures. Bilateral breast implants are pres ent, partially collapsed. IMPRESSION: Aorta demonstrates no evidence of aneurysmal dilation, dissection, hemodynamically significant stenos is or vascular occlusion. No bowel obstruction. Reviewed by: Neida Londono MD on 09/29/2021 3:17 PM PDT Approved by: Neida Londono MD on 09/29/2021 3:17 PM PDT Station ID: [id number]
[2021-09-29 15:35] VITALS: BP 113/70
== END 2021-09-29 15:45 | disposition home or self-care (01) ==
LOC: ED 11:36
DX: J44.1 Chronic obstructive pulmonary disease with (acute) exacerbation (principal); R10.9 Unspecified abdominal pain; R05.1 Acute cough; R30.0 Dysuria; Z20.822 Contact with and (suspected) exposure to COVID-19; E11.9 Type 2 diabetes mellitus without complications; Z79.84 Long term (current) use of oral hypoglycemic drugs
CPT/HCPCS: 36415; 71275; 74174; 80048; 81003; 85025; 87086; 93005; 94640; 99284; A9270; J7512; Q9967; U0004; 81001

== ENCOUNTER 2022-01-06 09:54 | Outpatient (CLI) | payer MEDICARE, OTHER ==
--- NOTE | 2022-01-06 11:35 | XRAY Report ---
PROCEDURE: Shoulder 3 View BILAT INDICATIONS: BILATERAL SHOULDER PAIN TECHNIQUE: 6 views of the shoulder were acquired. COMPARISON: None. FINDINGS: Bones: Suture anchor is seen in right humeral head likely represent prior rotator cuff tendon repair. No fractures or dislocations. Moderate bilateral acromioclavicular joint and glenohumeral joint ost eoarthritic changes are seen with joint space narrowing, subchondral sclerosis and small marginal ost eophyte formation. No suspicious bony lesions. Visualized ribs appear intact. Soft tissues: No suspicious soft tissue calcifications. IMPRESSION: Prior right shoulder surgery with post surgical changes. Moderate bilateral shoulder karla nt osteoarthritis. No fracture or dislocation. No gross soft tissue abnormality. Reviewed by: Jac Lemus MD on 01/06/2022 11:33 AM PDT Approved by: Jac Lemus MD on 01/06/2022 11:33 AM PDT Station ID: [id number]
[2022-01-06 15:19] LABS: ALBUMIN 3.8 g/dL (3.2-5.5); ALBUMIN/GLOBULIN RATIO 1.1 (1.0-2.2); ALKALINE PHOSPHATASE 69 IU/L (42-121); ALT ALANINE AMINOTRANSFERASE 25 IU/L (10-60); AST ASPARTATE AMINOTRANSFERASE 22 IU/L (10-42); BILIRUBIN,TOTAL 0.6 mg/dL (0.2-1.0); BUN - BLOOD UREA NITROGEN 21 mg/dL (6-20); CARBON DIOXIDE - CO2 29 mmol/L (21-32); CHLORIDE 99 mmol/L (101-111); CREATININE 0.9 mg/dL (0.4-1.0); GFR - MDRD 62 (>89); GLUCOSE 123 mg/dL (70-100); POTASSIUM 4.4 mmol/L (3.5-5.0); SODIUM 138 mmol/L (135-145); TOTAL PROTEIN 7.2 g/dL (6.7-8.2)
[2022-01-06 15:23] LABS: CREATININE,URINE 24.4 mg/dL
[2022-01-06 15:29] LABS: CRP - C-REACTIVE PROTEIN < 1.0 mg/dL (0-1.0); MICROALBUMIN,URINE < 0.2 mg/dL (0-300.0)
[2022-01-06 20:35] LABS: ESTIMATED AVERAGE GLUCOSE 163 mg/dL (70-100); HEMOGLOBIN A1c% 7.3 % (4.27-6.07)
== END 2022-01-06 09:55 | disposition home or self-care (01) ==
LOC: DI.S 09:54
DX: E11.40 Type 2 diabetes mellitus with diabetic neuropathy, unspecified (principal); M25.512 Pain in left shoulder; M25.511 Pain in right shoulder; E55.9 Vitamin D deficiency, unspecified; M19.012 Primary osteoarthritis, left shoulder; M19.011 Primary osteoarthritis, right shoulder
CPT/HCPCS: 36415; 80053; 82043; 82306; 82570; 83036; 85651; 86140

== ENCOUNTER 2022-03-30 12:40 | Outpatient (CLI) | payer MEDICARE, OTHER ==
[2022-03-30] MEDS ORDERED: ALBUTEROL 1 PUFF INH STA (14:25)
== END 2022-03-30 12:41 | disposition home or self-care (01) ==
LOC: RT 12:40
PROVIDERS: ATTEND Nurse Practitioner Family
DX: J44.9 Chronic obstructive pulmonary disease, unspecified (principal)
CPT/HCPCS: 94060

== ENCOUNTER 2022-03-30 14:20 | Outpatient (CLI) | payer MEDICARE, OTHER ==
--- NOTE | 2022-03-30 21:17 | DEXA Report ---
PROCEDURE: Dexa Spine and/or Hip INDICATIONS: POSTMENOPAUSAL TECHNIQUE: Dual energy x-ray absorptiometry (DXA) was performed on a Perfect Escapes System. Regions measur ed are the AP Spine, femoral neck, and if needed forearm. COMPARISON: None. FINDINGS: Lumbar Spine: Bone Mineral Density 1.239 g/cm/cm,T score 0.5, normal. Left Hip: Bone Mineral Density 0.826 g/cm/cm,T score -1.4, osteopenia. Left Femoral Neck: Bone Mineral Density 0.798 g/cm/cm, T score -1.7, osteopenia. (T score greater or equal to -1.0: NORMAL) (T score from -1.1 to -2.4: OSTEOPENIA) (T score less than or equal to -2.5 to: OSTEOPOROSIS) Impression: Based on WHO criteria, the patient has osteopenia. Patients with diagnosis of osteoporosis or osteopenia should have regular bone mineral density assess ment. For those eligible for Medicare, routine testing is allowed once every 2 years. Testing frequ ency can be increased for patients who have rapidly progressing disease or for those who are receivin g medical therapy to restore bone mass. Reviewed by: Harlan Salguero MD on 03/30/2022 9:16 PM PDT Approved by: Harlan Salguero MD on 03/30/2022 9:16 PM PDT Station ID: [id number]
== END 2022-03-30 14:21 | disposition home or self-care (01) ==
LOC: DI 14:20
PROVIDERS: ATTEND Nurse Practitioner Family
DX: M85.88 Other specified disorders of bone density and structure, other site (principal); J44.9 Chronic obstructive pulmonary disease, unspecified; Z78.0 Asymptomatic menopausal state
CPT/HCPCS: 94060

== ENCOUNTER 2022-03-30 14:21 | Outpatient (CLI) | payer MEDICARE, OTHER ==
--- NOTE | 2022-04-20 11:50 | Mammography Report ---
BILATERAL DIGITAL SCREENING MAMMOGRAM 3D/2D WITH AUGMENTATION: 03/30/2022 CLINICAL: Routine screening. No prior exams were available for comparison. There are scattered areas of fibroglandular density in both breasts (category b / 25%-50% glandular t issue). Bilateral retropectoral silicone implants are present. There is an asymmetry in the right breast middle depth central to the nipple seen on the mediolateral oblique view only. Finding is seen only on tomography. The nipple is noted to be medially rotated on implant displaced MLO view, placing the asymmetry in the lateral breast. No other significant masses, calcifications, or other findings are seen in either breast. IMPRESSION: INCOMPLETE: NEEDS ADDITIONAL IMAGING EVALUATION The asymmetry in the right breast is indeterminate. Additional views with possible ultrasound are re commended. Based on the Tyrer Cuzick model (a risk assessment model) the patients lifetime risk is 6.5% and her 10 year risk is 3.4%. According to the ACR, ACS, and NCCN guidelines, an annual breast MRI exam raquel g with mammogram is recommended if the patients lifetime risk is 20% or greater. This exam was interpreted at Station ID: [id number]. NOTE: For mammograms, a report in lay terms will be sent to the patient. Approximately 15% of breast malignancies will not be visualized mammographically. In the management of a palpable breast mass, a negative mammogram must not discourage biopsy of a clinically suspicious lesion. Electronically Signed By: Kareem olivares/titi:04/19/2022 09:39:52 ACR BI-RADS Category 0: Incomplete 3340F PARENCHYMAL PATTERN: (A) - The breast(s) demonstrate(s) scattered fibroglandular densities. BI-RADS CATEGORY: (0) - 0 Mammo and [place] [id number] Immediate follow-up LATERALITY: (R)
== END 2022-03-30 14:22 | disposition home or self-care (01) ==
LOC: DI 14:21
PROVIDERS: ATTEND Nurse Practitioner Family
DX: Z12.31 Encounter for screening mammogram for malignant neoplasm of breast (principal); Z98.82 Breast implant status; R92.8 Other abnormal and inconclusive findings on diagnostic imaging of breast

== ENCOUNTER 2022-05-26 08:00 | Outpatient (CLI) | payer MEDICARE, OTHER ==
[2022-05-26 20:40] LABS: BASOPHILS # (AUTO) 0.1 10^3/uL (0.0-0.1); BASOPHILS % (AUTO) 0.7 %; EOSINOPHILS # (AUTO) 0.7 10^3/uL (0.0-0.7); EOSINOPHILS % (AUTO) 10.6 %; HCT - HEMATOCRIT 46.2 % (37.0-47.0); HGB - HEMOGLOBIN 14.4 g/dL (12.0-16.0); LYMPHOCYTES # (AUTO) 1.8 10^3/uL (1.5-3.5); LYMPHOCYTES % (AUTO) 26.3 %; MEAN CORPUSCULAR HEMOGLOBIN 28.6 pg (27.0-31.0); MEAN CORPUSCULAR HGB CONC 31.2 g/dL (32.0-36.0); MEAN CORPUSCULAR VOLUME 91.8 fL (81.0-99.0); MEAN PLATELET VOLUME 11.8 fL (7.9-10.8); MONOCYTES # (AUTO) 0.9 10^3/uL (0.0-1.0); MONOCYTES % (AUTO) 13.4 %; NEUTROPHILS # (AUTO) 3.4 10^3/uL (1.5-6.6); NEUTROPHILS % (AUTO) 48.9 %; PLT - PLATELET COUNT 255 10^3/uL (130-450); RED BLOOD COUNT 5.03 10^6/uL (4.20-5.40); RED CELL DISTRIBUTION WIDTH 14.4 % (12.0-15.0); WHITE BLOOD COUNT 6.9 x10^3/uL (4.8-10.8)
[2022-05-26 20:51] LABS: CALCIUM 8.8 mg/dL (8.5-10.3); CREATININE 1.2 mg/dL (0.4-1.0); POTASSIUM 3.8 mmol/L (3.5-5.0)
--- NOTE | 2022-05-27 12:21 | XRAY Report ---
PROCEDURE: Chest 2 View X-Ray INDICATIONS: Cough TECHNIQUE: Two view(s) of the chest. COMPARISON: 01/30/2021 FINDINGS: Surgical changes and devices: None. Lungs and pleura: No pleural effusions or pneumothorax. Lungs are clear. Mediastinum: Mediastinal contours are normal. Heart size is normal. Bones and chest wall: No suspicious bony abnormalities. Soft tissues appear unremarkable. IMPRESSION: No acute cardiopulmonary process demonstrated radiographically. Reviewed by: Bud Elias MD on 05/27/2022 12:20 PM PST Approved by: Bud Elias MD on 05/27/2022 12:20 PM PST Station ID: [id number]
== END 2022-05-26 23:59 | disposition home or self-care (01) ==
LOC: DI.N 08:00
PROVIDERS: ATTEND Physician Assistant
DX: R05.9 Cough, unspecified (principal)
CPT/HCPCS: 36415; 80048; 83880; 85025